=== PATIENT | female | born 1945 | race Caucasian/White ===

== ENCOUNTER 2019-07-24 14:40 | Emergency (ER) | payer BC, OTHER ==
[~2019-07-24] VITALS: Ht 167.6 cm; Wt 68.0 kg
--- NOTE | 2019-07-24 14:47 | NUR ---
ED Nurse Note: pt not found in waiting area.
--- NOTE | 2019-07-24 15:00 | NUR ---
ED Nurse Note: PT WALKED IN TO ER TODAY FROM HOME. AOX4. PT C/O INCREASED URINARY URGENCY AND FREQUENCY WITH LOW OUTPUT X 1 MONTH AGO WITH SYMPTOMS WORSENING X 3 DAYS AGO. PT STATES SHE WAS SEEN AT [facility]D'S OFFICE 06/21/19 AND WAS GIVEN MACROBID REGIMEN. PT STATES SHE COMPLETED ABX REGIMEN BUT THAT SYMPTOMS HAVE PERSISTED AND HAVE BEEN WORSE IN THE LAST 3 DAYS. PT ALSO ADDS THAT SHE NOW HAS LOWER ABDOMINAL CRAMPING. URINE SPECIMEN PROVIDED BY PT AND SENT TO LAB. DR SLADE AT BEDSIDE FOR EVALUATION.
[2019-07-24] MEDS ORDERED: BENAZEPRIL HCL20 MG ORAL (15:05)
[2019-07-24] MEDS ORDERED: SIMVASTATIN20 MG ORAL (15:05)
[2019-07-24 15:23] VITALS: BP 163/65
--- NOTE | 2019-07-24 15:30 | Emergency Room Report ---
History of Present Illness General Chief Complaint: Female Urogenital Problems Source: Patient Present Illness HPI 74-year-old female presenting with increased urinary frequency dysuria worsening over the last 3 days. Symptoms started 6 weeks ago, where she saw her primary care doctor and was given a prescription of Macrobid for 5 days. Patient completed prescription on 921. Patient reported still having increased symptoms since then. However over the last 3 days she is unable to make more urine. Patient try to obtain care last night at [facility] but left without being seen. Patient denies fevers chills nausea or vomiting. Patient notes lower abdominal cramping symptoms mild in nature nonradiating. Patient denies vaginal bleeding or discharge. Allergies: Coded Allergies: LATEX (Verified Allergy, Unknown, 07/24/19) NEOMYCIN (Verified Allergy, Unknown, 07/24/19) Nursing Documentation-[facility] Past Medical History: No History, Except For Hx Hypertension: Yes Review of Systems Constitutional: Denies: chills, fever Respiratory: Denies: cough Cardiovascular: Denies: chest pain, palpitations Genitourinary: Reports: dysuria, frequency, pain, urgency; Denies: hematuria, incontinence, vag bleed/dc Musculoskeletal: Denies: back pain, joint swelling Neurological: Denies: headache, focal weakness Physical Exam Vital Signs Date Time Temp Pulse Resp B/P (MAP) Pulse Ox O2 Delivery O2 Flow Rate FiO2 07/24/19 14:58 98.1 93 18 177/77 (110) 97 Room Air Sp02 EP Interpretation: reviewed, normal General Appearance: no apparent distress, alert, GCS 15, non-toxic Head: normocephalic, atraumatic Eyes: bilateral eye normal inspection, bilateral eye PERRL ENT: hearing grossly normal, normal pharynx, no angioedema, normal voice Neck: full range of motion, supple/symm/no masses Respiratory: chest non-tender, lungs clear, normal breath sounds, speaking full sentences Cardiovascular #1: regular rate, rhythm, no edema Cardiovascular #2: 2+ carotid (R), 2+ carotid (L), 2+ radial (R), 2+ radial (L) , 2+ dorsalis pedis (R), 2+ dorsalis pedis (L) Gastrointestinal: normal bowel sounds, soft, non-distended, no guarding, no rebound, tenderness - Suprapubic Rectal: deferred Genitourinary: normal inspection, no CVA tenderness Musculoskeletal: back normal, gait/station normal, normal range of motion, non- tender, calf tenderness Neurologic: alert, oriented x3, responsive, motor strength/tone normal, sensory intact, speech normal Psychiatric: judgement/insight normal, memory normal, mood/affect normal, no suicidal/homicidal ideation Lymphatic: no adenopathy Medical Decision Making ER Course 74 yo F pw abdominal pain, dysuria, s/p ABX as outpt. DDX: UTI, pyelonephritis, pancreatitis, acute cholecystitis/hepatitis, biliary colic, gerd, pud, gastritis, aaa, dissection, diverticulitis, kidney stone, appendicitis, sbo/volvulus, acute gastroenteritis, toxins/withdrawal Pt found to be hyponatremic, mild acute kidney injury with positive WBCs started on IV antibiotics, discussed findings with patient, patient amenable to admission for UTI with failed outpt management and [facility]. transfer center paged. Discussed patients case with Dr. Heriberto Fortune will transfer to hospital determined by insurance. Stable for transfer at this time Patient pending tansfer however it was determined to have patient trasnferred to hospital in [place] by [facility]. Patient did not want to be admitted 2 hours away from her home, she called [facility] time multiple times but she and we were unable to find admission closer to her home. Patient decided to ultimately leave against medical advice. Discussed with patient, if she does not obtain proper treatment of her hyponatremia and uti she could suffer from infection, sepsis, cardiac or respiratory distress, kidney injury, possible require dialysis, or have loss to limb or life. She understands these risks and she is still wanted to leave against medical advice. EKG Diagnostic Results Rate: normal Rhythm: NSR Other Impression Left bundle branch block unchanged from 04/22/19 Rhythm Strip Diag. Results EP Interpretation: yes Rate: 82 Rhythm: NSR Last Vital Signs Date Time Temp Pulse Resp B/P (MAP) Pulse Ox O2 Delivery O2 Flow Rate FiO2 07/24/19 14:58 98.1 93 18 177/77 (110) 97 Room Air Disposition: AGAINST MEDICAL ADVICE Condition: Stable Scripts Levofloxacin (LEVOFLOXACIN*) 500 Mg Tablet 500 MG ORAL DAILY for 7 Days, #7 TAB Prov: Jose Luis Brar M.D. 07/24/19 Jose Luis Brar M.D. Jul 24, 2019 15:30
[2019-07-24 15:48] LABS: BASOPHILS % (AUTO) 1.1 % (0.0-2.0); EOSINOPHILS % (AUTO) 0.2 % (0.0-3.0); HEMATOCRIT 35.6 % (37.0-47.0); HEMOGLOBIN 12.3 G/DL (12.0-16.0); LYMPHOCYTES % (AUTO) 8.4 % (20.0-45.0); MEAN CORPUSCULAR VOLUME 86 FL (80-99); MONOCYTES % (AUTO) 9.5 % (1.0-10.0); NEUTROPHILS % (AUTO) 80.7 % (45.0-75.0); PLATELET COUNT 302 K/UL (150-450); RED BLOOD COUNT 4.13 M/UL (4.20-5.40); RED CELL DISTRIBUTION WIDTH 11.8 % (11.6-14.8); WHITE BLOOD COUNT 12.2 K/UL (4.8-10.8)
[2019-07-24 15:51] LABS: APPEARANCE,URINE TURBID; BILIRUBIN, URINE NEGATIVE (NEGATIVE); GLUCOSE, URINE (UA) NEGATIVE (NEGATIVE); KETONES,URINE 1+ (NEGATIVE); LEUKOCYTE ESTERASE ,URINE 3+ (NEGATIVE); NITRITE,URINE NEGATIVE (NEGATIVE); PH,URINE 8 (4.5-8.0); PROTEIN,URINE 3+ (NEGATIVE); UROBILINOGEN,URINE NORMAL MG/DL (0.0-1.0)
[2019-07-24 15:52] LABS: COLOR,URINE YELLOW
[2019-07-24 16:02] LABS: ANION GAP 11 mmol/L (5-15); BLOOD UREA NITROGEN 33 mg/dL (7-18); CALCIUM 9.9 MG/DL (8.5-10.1); CARBON DIOXIDE 23 MMOL/L (21-32); CHLORIDE 94 MMOL/L (98-107); CREATININE 1.2 MG/DL (0.55-1.30); POTASSIUM 4.3 MMOL/L (3.5-5.1); SODIUM 128 MMOL/L (136-145)
[2019-07-24 16:07] LABS: ALANINE AMINOTRANSFERASE 23 U/L (12-78); ALBUMIN 3.4 G/DL (3.4-5.0); ALBUMIN/GLOBULIN RATIO 0.8 (1.0-2.7); ALKALINE PHOSPHATASE 114 U/L (46-116); ASPARTATE AMINO TRANSFERASE 23 U/L (15-37); BILIRUBIN,TOTAL 0.7 MG/DL (0.2-1.0)
[2019-07-24] MEDS ORDERED: cefTRIAXone 2 GM in NS 110 ML IV SCH (16:45)
--- NOTE | 2019-07-24 17:14 | NUR ---
ED Nurse Note: LACTIC ACID AND BLOOD CULTURES COLLECTED AND SENT TO LAB.
[2019-07-24] MEDS ORDERED: Acetaminophen 500mg (ES) tab ORAL ONE (17:30)
--- NOTE | 2019-07-24 18:44 | NUR ---
ED Nurse Note: [facility] CALLED FOR PT REPORT. REPORT GIVEN TO ZION HASTINGS. RN READY TO ACCEPT PT AND AWARE OF [facility] ETA TO [facility] [place].
--- NOTE | 2019-07-24 19:12 | NUR ---
ED Nurse Note: FAX AMA TO: [phone]
--- NOTE | 2019-07-24 19:13 | NUR ---
Nancy alberto in [facility] - 07/24/19 at 1918 by ALESSANDRA HAND-OFF: REPORT GIVEN TO ZION SHAH.
--- NOTE | 2019-07-24 19:18 | NUR ---
ED Nurse Note: PT ADVISED THAT SHE WILL BE TRANSFERRING TO [facility]. PT REFUSES TO GO TO THAT HOSPITAL. PT SPOKE WITH HER INSURANCE WHO STATES THEY ARE UNABLE TO TRANSFER HER ANYWHERE ELSE. PT WANTS TO LEAVE AMA. PRIMARY RN AND DR SLADE AT BEDSIDE EXPLAINING RISKS AND CONSEQUENCES INVOLVED IN LEAVING THE HOSPITAL AT THIS TIME WELL THE BENEFITS OF CONTINUED TREATMENT AND HOSPITALIZATION. PT VERBALIZES UNDERSTANDING BUT STILL REFUSES TO TRANSFER. PT SIGNED AMA FORM WITNESSED BY PRIMARY RN. IV AND ID WRISTBAND REMOVED. PT WALKED OUT OF ER WITH STEADY GAIT AND ALL BELONGINGS ACCOMPANIED BY DAUGHTER.
[2019-07-24 19:21] VITALS: BP 141/62
[2019-07-24] MEDS ORDERED: LEVOFLOXACIN500 MG ORAL (19:44)
== END 2019-07-24 19:46 | disposition left against medical advice (07) ==
LOC: EMR 15:30
DX: R30.0 Dysuria (principal); R10.30 Lower abdominal pain, unspecified; Z91.040 Latex allergy status; I10 Essential (primary) hypertension; E87.1 Hypo-osmolality and hyponatremia; R10.9 Unspecified abdominal pain; N17.9 Acute kidney failure, unspecified; N39.0 Urinary tract infection, site not specified; I44.7 Left bundle-branch block, unspecified
CPT/HCPCS: 36415; 80053; 81003; 83605; 83690; 85025; 87040; 87086; 87181; 96365; 99284; J0696; J7040